=== PATIENT | female | born 1975 | race African-American/Black ===

== ENCOUNTER 2019-11-29 13:30 | Emergency (ER) | payer OTHER, BC ==
[~2019-11-29] VITALS: Ht 167.6 cm; Wt 90.0 kg
--- NOTE | 2019-11-29 13:49 | PHYS DOC ---
Past History Past Medical History: No Pertinent History Past Surgical History: Gastric Bypass Smoking: Non-smoker Alcohol Use: None Drug Use: None General Adult EDM: Chief Complaint: Hypertension, tachycardia, headache HPI: HPI: 44-year-old female who woke up 3 days ago with a dull headache that has been persistent. Yesterday and today patient had some transient sharp right-sided chest pain that has since resolved. Today patient had some dizziness and took her blood pressure heart rate at work and was found to have blood pressure 150 systolic and heart rate of 140. Patient has some mild nausea. 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 Patient denies any fever, cough any current shortness of breath. No focal neurological deficits. Review of Systems: Review of Systems: Constitutional: Denies fever or chills Eyes: Denies change in visual acuity HENT: Denies nasal congestion or sore throat Respiratory: Denies cough or shortness of breath Cardiovascular: Patient had transient right-sided chest pain that has since resolved GI: Denies abdominal pain, vomiting, bloody stools or diarrhea . Patient has mild nausea : Denies dysuria Musculoskeletal: Denies back pain or joint pain Integument: Denies rash Neurologic: Patient has a dull headache. Denies weakness or sensory deficit Endocrine: Denies polyuria or polydipsia Lymphatic: Denies swollen glands Psychiatric: Denies depression or anxiety Heart Score: Risk Factors: Risk Factors: DM, Current or recent (<one month) smoker, HTN, HLP, family history of CAD, obesity. Risk Scores: Score 0 - 3: 2.5% MACE over next 6 weeks - Discharge Home Score 4 - 6: 20.3% MACE over next 6 weeks - Admit for Clinical Observation Score 7 - 10: 72.7% MACE over next 6 weeks - Early Invasive Strategies Physical Exam: PE: Constitutional: Well developed, well nourished, no acute distress, non-toxic appearance. [] HENT: Normocephalic, atraumatic, bilateral external ears normal, oropharynx moist, no oral exudates, nose normal. [] Eyes: PERRLA, EOMI, conjunctiva normal, no discharge. [] Neck: Normal range of motion, no tenderness, supple, no stridor. [] Cardiovascular:Heart rate regular rhythm, no murmur [] Lungs & Thorax: Bilateral breath sounds clear to auscultation [] Abdomen: Bowel sounds normal, soft, no tenderness, no masses, no pulsatile masses. [] Skin: Warm, dry, no erythema, no rash. [] Back: No tenderness, no CVA tenderness. [] Extremities: No tenderness, no cyanosis, no clubbing, ROM intact, no edema. [] Neurologic: Alert and oriented X 3, normal motor function, normal sensory function, no focal deficits noted. [] Psychologic: Affect normal, judgement normal, mood normal. [] Current Patient Data: Labs: Laboratory Tests Test 11/29/19 14:00 White Blood Count 5.1 x10^3/uL Red Blood Count 3.97 x10^6/uL Hemoglobin 10.9 g/dL Hematocrit 33.3 % Mean Corpuscular Volume 84 fL Mean Corpuscular Hemoglobin 27 pg Mean Corpuscular Hemoglobin Concent 33 g/dL Red Cell Distribution Width 14.2 % Platelet Count 278 x10^3/uL Neutrophils (%) (Auto) 53 % Lymphocytes (%) (Auto) 38 % Monocytes (%) (Auto) 5 % Eosinophils (%) (Auto) 3 % Basophils (%) (Auto) 1 % Neutrophils # (Auto) 2.7 x10^3uL Lymphocytes # (Auto) 1.9 x10^3/uL Monocytes # (Auto) 0.3 x10^3/uL Eosinophils # (Auto) 0.2 x10^3/uL Basophils # (Auto) 0.0 x10^3/uL Maternal Serum HCG Beta Subunit < 1 mIU/mL Sodium Level 138 mmol/L Potassium Level 3.7 mmol/L Chloride Level 104 mmol/L Carbon Dioxide Level 25 mmol/L Anion Gap 9 Blood Urea Nitrogen 10 mg/dL Creatinine 1.0 mg/dL Estimated GFR (Cockcroft-Gault) 59.7 BUN/Creatinine Ratio 10 Glucose Level 83 mg/dL Calcium Level 8.8 mg/dL Total Bilirubin 0.3 mg/dL Aspartate Amino Transf (AST/SGOT) 18 U/L Alanine Aminotransferase (ALT/SGPT) 19 U/L Alkaline Phosphatase 106 U/L Creatine Kinase 182 U/L Troponin I Quantitative < 0.017 ng/mL Total Protein 7.5 g/dL Albumin 3.4 g/dL Albumin/Globulin Ratio 0.8 Lipase 62 U/L Current Medications Medications (Trade) Dose Ordered Sig/Adam Route PRN Reason Start Time Stop Time Status Last Admin Dose Admin Sodium Chloride (Normal Saline Flush) 10 ml QSHIFT PRN IV AFTER MEDS AND BLOOD DRAWS 11/29/19 14:00 EKG: EKG: Normal sinus rhythm with a rate of 90 left axis deviation, normal intervals, normal ST segments Radiology/Procedures: Radiology/Procedures: [][address] [address] IMAGING REPORT Signed PATIENT: LILLIE WILSONUNT: [id number] : 1975 LOCATION: ER AGE: 44 SEX: F EXAM STATUS: PRE ER ORD. PHYSICIAN: AVIVA CLEANING MD REASON: HEADACHE, HYPTERTENSION X 3 DAYS PROCEDURE: CT HEAD WO CONTRAST CT HEAD WO CONTRAST History:Headache, hypertension for 3 days Comparison: None. Technique: Noncontrast CT imaging was performed of the head. Exposure: One or more of the following individualized dose reduction techniques were utilized for this examination: 1. Automated exposure control 2. Adjustment of the mA and/or kV according to patient size 3. Use of iterative reconstruction technique. Findings: No acute extra-axial or parenchymal hemorrhage is identified. There is no significant intra-axial mass effect, midline shift, or extra-axial fluid collection. The hogan-white differentiation of the major vascular territories is preserved. The ventricles, sulci, and cisterns are within normal limits in size and configuration. The mastoid air cells and the visualized paranasal sinuses are aerated. No acute calvarial abnormality is identified. There is 8 mm focus of nonspecific dural based calcification along the anterior falx, not associated with significant soft tissue mass. Impression: 1. No acute intracranial abnormality is identified. Electronically signed by: Nicky Fatima MD (11/29/2019 2:41 PM) [id number] DICTATED AND SIGNED BY: NICKY FATIMA MD DATE: 11/29/19 1441 CC: AVIVA CLEANING MD ~ [address] [address] IMAGING REPORT Signed PATIENT: JOVI WILSONACCOUNT: [id number] : 1975 LOCATION: ER AGE: 44 SEX: F EXAM STATUS: PRE ER ORD. PHYSICIAN: AVIVA CLEANING MD REASON: CHEST PAIN PROCEDURE: PORTABLE CHEST 1V Single view of the chest. 11/29/2019 1:49 PM Indication: Reason: CHEST PAIN / Spl. Instructions: / History: Comparison: None Findings: There is no focal consolidation. There is no pleural effusion or pneumothorax. The cardiomediastinal silhouette and pulmonary vasculature are within normal limits. No acute osseous abnormalities are seen. Impression: No evidence of acute cardiopulmonary process. Electronically signed by: Markell Forbes MD (11/29/2019 2:43 PM) [id number] DICTATED AND SIGNED BY: MARKELL FORBES MD DATE: 11/29/19 1443 CC: AVIVA CLEANING MD ~ [place] [address] IMAGING REPORT Signed PATIENT: JOVI WILSONACCOUNT: [id number] : 1975 LOCATION: ER AGE: 44 SEX: F EXAM STATUS: PRE ER ORD. PHYSICIAN: AVIVA CLEANING MD REASON: r/o pe, elevated dimer - CHEST PAIN PROCEDURE: CT ANGIOGRAPHY CHEST Exam: CT of chest with contrast INDICATION: Rule out PE, elevated d-dimer TECHNIQUE: Sequential axial images through the chest obtained following the administration of 90 mL of Isovue-370 IV contrast. Sagittal and coronal reformatted images were reconstructed from the axial data and reviewed. 3-D reformatted images were reconstructed from the axial data and reviewed. Comparisons: None FINDINGS: Visual is portions of the thyroid are unremarkable. No enlargement is not lymph nodes are identified. Heart size is normal. No pericardial effusion. Thoracic aorta has a normal course and caliber. Pulmonary artery is not enlarged. No pulmonary embolus identified within the main, lobar or segmental pulmonary arteries. Airways are patent. No consolidation or pneumothorax. There is a 1.2 cm nodule in the right middle lobe. No suspicious lung nodules. No pleural effusion or thickening. Postsurgical changes at the stomach. Visualized upper abdomen is unremarkable. No suspicious osseous lesions or acute fractures. IMPRESSION: 1. No pulmonary embolus identified within the main, lobar or segmental pulmonary arteries. 2. A 1.2 cm nodule in the right middle lobe. Further evaluation with either PET/CT, tissue sampling or 3 month follow-up chest CT is recommended. Exposure: One or more of the following in the visualized dose reduction techniques were utilized for this examination: 1. Automated exposure control 2. Adjustment of the MA and/or KV according to patient size 3. Use of iterative of reconstructive technique Electronically signed by: Pascale Calvo MD (11/29/2019 5:17 PM) [id number] DICTATED AND SIGNED BY: PASCALE CALVO MD DATE: 11/29/19 1717 CC: AVIVA CLEANING MD ~ Course & Med Decision Making: Course & Med Decision Making Pertinent Labs and Imaging studies reviewed. (See chart for details) 14:20: clinically improved. llanes better mips: d dimer elevated: therefore cta done Change in headache - A significant change in severity of the headache including changes in location or quality. Other criteria take into account most red flag symptoms and also may reflect change (if a stable primary headache were pre viously present) but do not reflect a previously tolerated headache that now becomes suddenly disabling in severity. Change also includes any and all new symptoms that may be associated with a headache: arm numbness, speech disturbance, etc. Indications that would warrant imaging include: ( )Head trauma ( )New or change in headache above 50 years of age ( )Abnormal neurologic exam ( )Thunderclap headache ( )Headache radiating to the neck ( )Trigeminal pain ( X)Persistent and positional headaches ( )Temporal headaches in patients over 55 years of age ( )New onset headache in pre-school children or younger (<6 years of age) ( )New onset headache in pediatric patients with disabilities for which headache is a concern as inferred from behavior ( )Occipital headache in children 17:28: Patient feels better. Patient resting comfortably. Patient's work-up is negative other than a right-sided pulmonary nodule. Discussed with patient need for outpatient follow-up imaging. Most likely the symptoms are due to mild high blood pressure and a headache. Patient will need to follow-up with her primary physician to maybe start some hypertensive medicines. Normal neurological exam and negative head CT, doubt subarachnoid hemorrhage. No evidence of thoracic aortic dissection or PE on CT angiogram. Symptoms are atypical for acute coronary syndrome as well. Dragon Disclaimer: Dragmoiz Disclaimer: This electronic medical record was generated, in whole or in part, using a voice recognition dictation system. Departure Departure: Impression: Primary Impression: Hypertension Additional Impressions: Chest pain Headache Pulmonary nodule Disposition: 01 HOME/RESIDENCE PRIOR TO ADM Condition: STABLE Referrals: LAMBERTO GUTIERREZ MD follow up with pcp or referred pcp in 2-3 days. also need re-imaging of the chest for a lung nodule Patient Instructions: Chest Pain (Nonspecific), General Headache Without Cause, Hypertension, Pulmonary Nodule Additional Instructions: EMERGENCY DEPARTMENT GENERAL DISCHARGE INSTRUCTIONS THANK YOU for coming to [facility] Emergency Department (ED) today and trusting us with your care. We trust that you had a positive experience in our Emergency Department. YOUR FOLLOW UP INSTRUCTIONS ARE FOLLOWS: Do you have a private doctor? If you do not have a private doctor, please ask for a resource list of physicians or clinics that may be able to assist you with follow up care . The Emergency Physician has interpreted your x-rays. The X-ray specialist will also review them. If there is a change in the findings you will be notified in 48 hours when at all possible. A lab test or lab culture may have been done, your results will be reviewed and you will be notified if you need a change in treatment. ADDITIONAL INSTRUCTIONS AND INFORMATION Your care today has been supervised by a physician who is specially trained in emergency care. Many problems require more than one evaluation for a complete diagnosis and treatment. We recommend that you schedule your follow up appointment as recommended to ensure complete treatment of your illness or injury. If you are unable to obtain follow up care and continue to have a problem, or if your condition worsens we recommend that you return to the ED. We are not able to safely determine your condition over the phone nor are we able to give sound medical advice over the phone. For these safety reasons, if you call for medical advice we will ask you to come to the ED for further evaluation If you have any questions regarding these discharge instructions please call the ED at . SAFETY INFORMATION In the interest of safety, wellness, and injury prevention; we encourage you to wear your seatbelt, if you smoke; quit smoking, and we encourage your family to use protective helmet for bicycling and other sporting events that present an increased risk for head injury. IF YOUR SYMPTOMS WORSEN OR NEW SYMPTOMS DEVELOP, OR YOU HAVE CONCERNS ABOUT YOUR CONDITION; OR IF YOUR CONDITION WORSENS WHILE YOU ARE WAITING FOR YOUR FOLLOW UP APPOINTMENT; EITHER CONTACT YOUR PRIMARY CARE DOCTOR, THE PHYSICIAN WHOSE NAME AND NUMBER YOU WERE GIVEN, OR RETURN TO THE ED IMMEDIATELY. Justification of Admission: Justification of Admission: Justification of Admission Dx: N/A AVIVA CLEANING MD Nov 29, 2019 13:49
[2019-11-29] MEDS ORDERED: 0.9 % SODIUM CHLORIDE 10 ML DISP.SYRIN. IV PRN (14:00)
--- NOTE | 2019-11-29 14:06 | EKG ---
[address] [address] Test Date: 2019-11-29 Test Time: 13:43:01 Pat Name: JOVI WILSON Department: Room: Gender: F Base Loader: : 1975 Requested By: AVIVA CLEANING Order Number: [id number] Reading MD: Measurements Intervals [place] Rate: 90 P: 51 [place]: 136 QRS: -3 QRSD: 84 T: -7 QT: 378 QTc: 467 Interpretive Statements SINUS RHYTHM LEFTWARD AXIS OTHERWISE NORMAL ECG RI6.02 No previous ECG available for comparison
[2019-11-29 14:21] VITALS: BP 131/86
[2019-11-29 14:25] LABS: BASO % 1 % (0-3); EOS # 0.2 x10^3/uL (0.0-0.7); EOS % 3 % (0-3); HEMATOCRIT 33.3 % (36.0-47.0); HEMOGLOBIN 10.9 g/dL (12.0-15.5); LYMPH # 1.9 x10^3/uL (1.0-4.8); LYMPH % 38 % (24-48); MEAN CORPUSCULAR HEMOGLOBIN 27 pg (25-35); MEAN CORPUSCULAR HGB CONC 33 g/dL (31-37); MEAN CORPUSCULAR VOLUME 84 fL (79-100); MONO # 0.3 x10^3/uL (0.0-1.1); MONO % 5 % (0-9); NEUT # 2.7 x10^3uL (1.8-7.7); NEUT % 53 % (31-73); PLATELET COUNT 278 x10^3/uL (140-400); RED BLOOD COUNT 3.97 x10^6/uL (3.50-5.40); RED CELL DISTRIBUTION WIDTH 14.2 % (11.5-14.5); WHITE BLOOD COUNT 5.1 x10^3/uL (4.0-11.0)
--- NOTE | 2019-11-29 14:43 | RAD ---
CT HEAD WO CONTRAST History:Headache, hypertension for 3 days Comparison: None. Technique: Noncontrast CT imaging was performed of the head. Exposure: One or more of the following individualized dose reduction techniques were utilized for this examination: 1. Automated exposure control 2. Adjustment of the mA and/or kV according to patient size 3. Use of iterative reconstruction technique. Findings: No acute extra-axial or parenchymal hemorrhage is identified. There is no significant intra-axial mass effect, midline shift, or extra-axial fluid collection. The hogan-white differentiation of the major vascular territories is preserved. The ventricles, sulci, and cisterns are within normal limits in size and configuration. The mastoid air cells and the visualized paranasal sinuses are aerated. No acute calvarial abnormality is identified. There is 8 mm focus of nonspecific dural based calcification along the anterior falx, not associated with significant soft tissue mass. Impression: 1. No acute intracranial abnormality is identified. Electronically signed by: Nicolás Jernigan MD (11/29/2019 2:41 PM) [id number]
--- NOTE | 2019-11-29 14:46 | RAD ---
Single view of the chest. 11/29/2019 1:49 PM Indication: Reason: CHEST PAIN / Spl. Instructions: / History: Comparison: None Findings: There is no focal consolidation. There is no pleural effusion or pneumothorax. The cardiomediastinal silhouette and pulmonary vasculature are within normal limits. No acute osseous abnormalities are seen. Impression: No evidence of acute cardiopulmonary process. Electronically signed by: Markell Diaz MD (11/29/2019 2:43 PM) [id number]
[2019-11-29 15:00] LABS: CALCIUM 8.8 mg/dL (8.5-10.1); GFR 59.7; POTASSIUM 3.7 mmol/L (3.5-5.1)
[2019-11-29 15:04] LABS: ALBUMIN 3.4 g/dL (3.4-5.0); ALBUMIN/GLOBULIN RATIO 0.8 (1.0-1.7); TOTAL BILIRUBIN 0.3 mg/dL (0.2-1.0); TOTAL PROTEIN 7.5 g/dL (6.4-8.2)
[2019-11-29 15:35] LABS: BACTERIA,URINE MOD /HPF (0-FEW); BILIRUBIN,URINE NEG (NEG); CLARITY,URINE CLEAR; COLOR,URINE YELLOW; GLUCOSE,URINE NEG (NEG); HYALINE CASTS, URINE OCC /HPF; NITRITE,URINE NEG (NEG); RBC,URINE OCC /HPF (0-2); SQUAMOUS EPITHELIAL CELL,UR MOD /LPF; UROBILINOGEN,URINE 0.2 mg/dL (0.2 mg/dL)
[2019-11-29] MEDS ORDERED: ACETAMINOPHEN 500 MG TABLET PO ONE (15:45)
[2019-11-29] MEDS ORDERED: METOCLOPRAMIDE HCL 10 MG/2 ML VIAL. IVP ONE (15:45)
[2019-11-29] MEDS ORDERED: IOHEXOL 350 MG/ML 100 ML VIAL. IV ONE (16:30)
--- NOTE | 2019-11-29 17:20 | RAD ---
Exam: CT of chest with contrast INDICATION: Rule out PE, elevated d-dimer TECHNIQUE: Sequential axial images through the chest obtained following the administration of 90 mL of Isovue-370 IV contrast. Sagittal and coronal reformatted images were reconstructed from the axial data and reviewed. 3-D reformatted images were reconstructed from the axial data and reviewed. Comparisons: None FINDINGS: Visual is portions of the thyroid are unremarkable. No enlargement is not lymph nodes are identified. Heart size is normal. No pericardial effusion. Thoracic aorta has a normal course and caliber. Pulmonary artery is not enlarged. No pulmonary embolus identified within the main, lobar or segmental pulmonary arteries. Airways are patent. No consolidation or pneumothorax. There is a 1.2 cm nodule in the right middle lobe. No suspicious lung nodules. No pleural effusion or thickening. Postsurgical changes at the stomach. Visualized upper abdomen is unremarkable. No suspicious osseous lesions or acute fractures. IMPRESSION: 1. No pulmonary embolus identified within the main, lobar or segmental pulmonary arteries. 2. A 1.2 cm nodule in the right middle lobe. Further evaluation with either PET/CT, tissue sampling or 3 month follow-up chest CT is recommended. Exposure: One or more of the following in the visualized dose reduction techniques were utilized for this examination: 1. Automated exposure control 2. Adjustment of the MA and/or KV according to patient size 3. Use of iterative of reconstructive technique Electronically signed by: Pascale Leach MD (11/29/2019 5:17 PM) [id number]
--- NOTE | 2019-12-03 11:08 | NUR ---
IP: attempt to notify patient of COVID results, I left message to call back.
== END 2019-11-29 17:40 | disposition home or self-care (01) ==
LOC: ER 13:30
DX: I10 Essential (primary) hypertension (principal); R07.89 Other chest pain; R51 Headache; R91.1 Solitary pulmonary nodule; Z20.828 Contact with and (suspected) exposure to other viral communicable diseases; Z98.84 Bariatric surgery status
CPT/HCPCS: 36415; 70450; 71045; 71275; 80053; 81001; 82550; 83605; 83690; 84145; 84443; 84484; 84702; 85025; 85379; 85384; 85610; 85730; 87040; 87086; 93005; 96374; 99285; J2765; Q9967; U0003